=== PATIENT | male | born 1965 | race Caucasian/White ===

== ENCOUNTER 2021-05-29 08:43 | Outpatient (CLI) | payer OTHER, BC, SELFPAY ==
--- NOTE | 2021-05-29 08:46 | RAD_ITS ---
STUDY: X-RAY - RIGHT ELBOW REASON FOR EXAM: Male, 55 years old. Elbow pain following a fall TECHNIQUE: 3 view(s) of the elbow. COMPARISON: None. FINDINGS: Normal visualized humerus, radius and ulna. There is degenerative arthrosis of the radiocapitellar and ulnotrochlear articulations. The soft tissue structures are unremarkable. RAD/Elbow min 3 Views IMPRESSION: Arthrosis of the elbow, as described above. No fracture or dislocation is seen. Electronically Signed: Yonas Dorman MD at 9:49 EST ,
--- NOTE | 2021-05-29 09:00 | RAD_ITS ---
STUDY: X-RAY - RIGHT SHOULDER REASON FOR EXAM: Male, 55 years old. Fall TECHNIQUE: 4 view(s) of the shoulder. COMPARISON: None. FINDINGS: Normal glenohumeral articulation. There is hypertrophic osteoarthrosis of the acromioclavicular joint with inferior osseous spur formation. Normal acromion. Normal humeral head and visualized proximal humerus. The soft tissue structures are unremarkable. Normal visualized pulmonary apex. 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 Electronically Signed: Yonas Dorman MD at 9:49 EST ,
== END 2021-05-29 23:59 | disposition home or self-care (01) ==
LOC: MTRAD 08:46
PROVIDERS: Visit Provider Physician Assistant Surgical
DX: S50.01XA Contusion of right elbow, initial encounter (principal)
CPT/HCPCS: 73030; 73080

== ENCOUNTER 2021-06-17 14:44 | Outpatient (CLI) | payer OTHER, BC, SELFPAY ==
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
== END 2021-06-17 23:59 | disposition home or self-care (01) ==
LOC: CT 14:47
PROVIDERS: Referring Provider Physician Assistant Surgical; Visit Provider Physician Assistant Surgical
DX: S46.911A Strain of unspecified muscle, fascia and tendon at shoulder and upper arm level, right arm, initial encounter (principal)
CPT/HCPCS: 73200

== ENCOUNTER → 2021-09-02 | Outpatient (CLI) | payer OTHER, BC, SELFPAY ==
--- NOTE | 2021-09-02 08:39 | MRI_ITS ---
STUDY: MR RIGHT SHOULDER ARTHROGRAPHY REASON FOR EXAM: Right shoulder pain and limited range of motion. TECHNIQUE: Standardized fat and water weighted pulse sequences were obtained in all 3 orthogonal planes after intra-articular instillation of dilute gadolinium. COMPARISON: Radiographs 05/29/2021. FINDINGS: There is a full-thickness tear of the supraspinatus and infraspinatus tendons retracted approximately 4.7 cm (T1 coronal images 5-15). There is an undersurface partial-thickness tear of the distal superior fibers of the subscapularis tendon with medial subluxation of the proximal extracapsular long biceps tendon (T1 axial images 11, 12; T1 sagittal image 11). Normal teres minor tendon. Normal supraspinatus muscle. Normal infraspinatus muscle. Normal subscapularis muscle. Normal teres minor muscle. Normal glenohumeral articulation. There is superior migration of the humeral head secondary to the retracted rotator cuff tear. Normal biceps labral complex. There is a tear of the anterior-inferior labrum (T1 axial images 13, 14) extending into the inferior labrum (T1 axial image 15; T1 coronal images 9-12). Normal capsulo- ligamentous complex. There is acromioclavicular arthrosis with hypertrophic changes (T2 sagittal image 16). There is a Type II morphology (curved), with a neutral orientation. There is dilute gadolinium in the subacromial-subdeltoid bursa. There is thickening of the coracoacromial ligament (T2 sagittal image 11). There is iatrogenic edema in the proximal anterior deltoid muscle. Normal trapezius muscle. MRI/Upper Ext Jt Only W/Contrast IMPRESSION: Full-thickness tear of the supraspinatus and infraspinatus tendons. Undersurface partial-thickness tear of the distal superior fibers of the subscapularis tendon with medial subluxation of the proximal extracapsular long biceps tendon. Tear of the anterior-inferior and inferior labrum. Acromioclavicular arthrosis. Thickening of the coracoacromial ligament. Electronically Signed: Dung Vidal MD at 11:31 EDT ,
--- NOTE | 2021-09-02 09:00 | RAD_ITS ---
CLINICAL HISTORY: Male, 56 years old. Pressure PROCEDURE: ARTHROGRAM - RIGHT SHOULDER CONSENT: The procedure with its potential risks was explained to the patient, all the questions and concerns were answered and written informed consent was obtained. SEDATION: None FLUOROSCOPY TIME (if supplied): (0.23) minutes/seconds. Injection Information: 10 cc MRI contrast mixture prepared by the pharmacy. Number of images obtained: 1 TECHNIQUE: (All elements of maximal sterile barrier technique followed, including US elements as applicable) A timeout was performed to confirm identity, procedure, and site. The patient''s right shoulder was localized under fluoroscopy. The patient''s right shoulder was prepped and draped in the usual sterile fashion. Local anesthesia was achieved with subcutaneous injection of approximately 8 cc of 2% LIDOCAINE. Under fluoroscopic guidance, a 22-gauge spinal needle was advanced into the right joint space and intra-articular location was confirmed with administration of 4 cc of 50-50 mixture of [id number] and normal saline. Approximately 5 cc of the MRI mixture was then injected into the joint. It was felt that there was some extra-articular contrast. The needle was then slightly repositioned. 10 cc of the MRI mixture was then injected into the joint with intra-articular location confirmed by fluoroscopy. The needle was then withdrawn. The patient tolerated the procedure well, with no intermediate complications. The patient was escorted to the MR suite for further imaging. RAD/Arthrogram Shoulder w/ MRI IMPRESSION: Successful right shoulder arthrogram. Electronically Signed: Chris Whitlock, at 11:21 EDT ,
[2021-09-02] MEDS: Lidocaine 2% (5ml sdv) 5 ML VIAL.MPF INFILT (09:05)
[2021-09-02] MEDS: Iopamidol 10 ML in Syringe 1 EACH 600 ML INTRAARTIC (09:05)
== END | disposition home or self-care (01) ==
LOC: RAD 08:30
PROVIDERS: Referring Provider Orthopaedic Surgery; Visit Provider Orthopaedic Surgery
DX: S46.911A Strain of unspecified muscle, fascia and tendon at shoulder and upper arm level, right arm, initial encounter (principal)
CPT/HCPCS: 23350; 73222; 77002; A9575; Q9967

== ENCOUNTER 2021-09-03 09:30 | Outpatient (RCR) | payer OTHER, BC, SELFPAY ==
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
--- NOTE | 2021-07-27 09:41 | HP.PTDCSUM ---
It has been my pleasure to treat TING POTTS referred by SHARRON Bass, with the diagnosis of Right Shoulder Strain for a total of 11 visit(s). Discharge Date: Please see the following information for a summary of their discharge status. Subjective: Patient reports that some days are better than others. He is doing his morning stretches and has more clicking overhead and behind his back. Carey he had more ROM in IR but has decreased recently. He avoids heavy lifting with his right. He is able to fold clothes and do dishes. ER without weight is better but if you add weight its pretty sore and hard. Anything overhead is more locking. Does have a little bit of tingling and numbness in the left neck/upper trap area. He feels the shoulder wears out during the day. Hard to lift anything with his arm extended (bigger parviz). Worst in the last 24 hours: 6/10 Best: 0/10. He is not back to work at this point. Went to see ortho- denied the injection- and is trying to get a release to get information on his metal plates for an MRI. Does not have an apt to go back to see the MD but plans to get one. Right Shoulder Pain Intensity (Out of 10): Unrated % Improvement: 70 Objective/Function: Posture: good sitting in a supported chair- does move around when he gets uncomfortable. Gait: no LE deviation noted- good arm swing and trunk rotation. Palpation: tender along bicipital groove. ROM: AROM: Cervical: WNL Finger dexterity/Air Traffic Control Specialist Center: WFL, Elbow: WFL Shoulder: Flexion: 180 degrees with pain with end range, Abd: 180 degrees with pain end range and cracks when he comes back down, IR: L2 with thumb ER: 50 degrees. Sensation: WNL. Strength: Shoulder: Tested with dynamometer: Flexion: 7/6 with pain and clicking, Extn: 25/33 Abd: 33/34 with pain, Add: / with pain ER: 12/ with pain, IR: / with pain, Elbow Extn: 15/17, Flexion: 34/33 Air Traffic Control Specialist Center: 80/80. - Special Tests. R Shoulder Lift Off Test - Subscapular Tear: Positive. R Shoulder Empty Can - SS: Positive. R Shoulder Belly Press - SupScap: Positive. R Shoulder Neer - Impingement: Positive. R Shoulder Durbin Eduin - Impingement: Positive Goal 1:: Patient will be I with HEP and progression Goal 2:: Patient will maintain proper posture t/o tx session to demo increased scap s/s. Goal 3:: Patient will demo full AROM without pain Goal 4:: Patient will report 80% better Plan: 07/27/21: Discharge to I HEP- return to MD for further evaluation. Focus on ROM and scapular s/s- functional mobility If there are questions or concerns regarding this patient's physical therapy, please feel free to call me at [phone]. Thank you for the referral of this patient. Sincerely, TYLER CordovaT Balance/Gait/Functional tests - Balance/Special Test Scores Quick DASH Score: 36.3626
--- NOTE | 2021-09-03 09:51 | HP.PTREVAL_ITS ---
SHARRON Bass, It has been my pleasure to treat TING POTTS over the last 22 visits for Right Shoulder Strain. Please see the progress note below for an update on the physical therapy plan of care! Subjective: Patient reports that he has less pain but we have been doing everything below 90 degrees. Had an MRI yesterday- which was very painful. Goes back to the MD probably after the first of September. Objective/Function: Posture: good sitting in a supported chair- does move around when he gets uncomfortable. Gait: no LE deviation noted- good arm swing and trunk rotation. Palpation: tender along bicipital groove. ROM: AROM: Cervical: WNL Finger dexterity/Supply Chain Consultant: WFL, Elbow: WFL Shoulder: Flexion: 180 degrees with pain with end range, Abd: 180 degrees with pain end range, IR: L2 with thumb ER: 50 degrees. Sensation: WNL. Strength: Shoulder: Tested with dynamometer: Flexion: 18/22 with pain and clicking, Extn: 25/30 Abd: 20, 19 with pain, Add: 20/20 with pain ER: 5/5 with pain, IR: 11/13 with pain, Elbow Extn: 15/17, Flexion: 34/33 Supply Chain Consultant: 80/80. - Special Tests. R Shoulder Lift Off Test - Subscapular Tear: Positive. R Shoulder Empty Can - SS: Positive. R Shoulder Belly Press - SupScap: Positive. R Shoulder Neer - Impingement: Positive. R Shoulder Durbin Eduin - Impingement: Positive Plan Plan: Return to MD for further evaluation. Focus on ROM and scapular s/s- functional mobility Balance/Gait/Functional tests - Balance/Special Test Scores Quick DASH Score: 27.2725 Goals Goal 1:: Patient will be I with HEP and progression Goal Time Frame: 4-6 Weeks Goal 2:: Patient will maintain proper posture t/o tx session to demo increased scap s/s. Goal Time Frame: 4-6 Weeks Goal 3:: Patient will demo full AROM without pain Goal Time Frame: 4-6 Weeks Goal 4:: Patient will report 80% better Goal Time Frame: 4-6 Weeks Anticipated Interventions Patient/Client Instruction: Educate patient on: Benefits of Fitness Program Therapeutic Exercise to Include: Strength training, Endurance training, Balance training, Coordination, Agility training, Body mechanics, Postural training, Flexibilty training, Gait and locomotor training, Neuromotor development, Dynamic Lumbar Stabilization, Scapular Strength/Stabilization For the Purpose of:: To improve muscle performance and motor function TENS: Yes Cryotherapy (ice pack, ice massage): Yes Thermo therapy (hot pack): Yes Ultrasound (thermal/non thermal): Yes Please do not hesitate to contact me at [phone] by phone or if you have questions or concerns regarding this new plan of care! Sincerely, TYLER CordovaT
--- NOTE | 2021-12-16 11:20 | HP.PT.NRP ---
TING POTTS was seen in my office for initial evaluation on 07/02/21. The following Plan of Care was established for this patient: Initial Frequency: 2x /Week Initial Duration: 4 Weeks Patient/Client Instruction: Educate patient on: Benefits of Fitness Program Therapeutic Exercise to Include: Strength training, Endurance training, Balance training, Coordination, Agility training, Body mechanics, Postural training, Flexibilty training, Gait and locomotor training, Neuromotor development, Dynamic Lumbar Stabilization, Scapular Strength/Stabilization For the Purpose of:: To improve muscle performance and motor function TENS: Yes Cryotherapy (ice pack, ice massage): Yes Thermo therapy (hot pack): Yes Ultrasound (thermal/non thermal): Yes This patient was last seen in our office . Pertinent comments regarding their Physical therapy will appear below: Patient to be d/c due to referral for surgery. At this point I will be discontinuing this patient from physical therapy. I would be happy to see this patient again in the future if found appropriate by the physician. Thank you! Swapna Cates, TIFFANY Balance/Gait/Functional tests - Balance/Special Test Scores Quick DASH Score: 27.5501
== END 2021-09-03 19:00 | disposition home or self-care (01) ==
LOC: PT 09:30
PROVIDERS: Referring Provider Physician Assistant Surgical; Visit Provider Physician Assistant Surgical
DX: S46.911D Strain of unspecified muscle, fascia and tendon at shoulder and upper arm level, right arm, subsequent encounter (principal)
CPT/HCPCS: 97014; 97110; 97162; 97164; G0283

== ENCOUNTER 2022-05-10 10:30 | Outpatient (RCR) | payer OTHER, SELFPAY ==
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
--- NOTE | 2022-05-07 14:55 | HP.PTREVAL_ITS ---
Dr. Jess Moser MD, It has been my pleasure to treat TING POTTS over the last 40 visits for ROTATOR CUFF TEAR MASSIVE. Please see the progress note below for an update on the physical therapy plan of care! Subjective: Patient reports more pain /soreness up most of the night. States 40 -50% improvement . Most lifting OH and lifting patient Objective/Function: POSTURE: rounded shoulders forward. PALAPTION: unremarkable. NEURO: denies paresthesia/tingling. AROM: flexion 160 degrees ,abduction 155 ,ER 90 degrees, IR L4. MMT: (peak force) IR 19.5 ,ER 9.1 ,Supraspinatus 9.0 soreness , deltoid 22.0 anterior with more soreness. Patient able to lift 35# crate to table ,push sled 90 degrees ,carry farmers 30#. Pract iced chest compression no problems. Overall today more sore affecting numbers with RTC strength Plan Plan: RTD. S/P MASSIVE RTC WITH REPAIR RTC (MASSIVE DOUBLE ROW ) ARHTRSOCOPIC WITH DEBRIDEMENT SUBACROMIAL DECOMPRESSION ACRMIOCLAVICULAR DECMPRESSION AND AC DECOMPRESSION BICEP TENODESIS S/P 12/15. PT INERVEVTIONS WORK CONDTIIONING RTC/SCAPULAR STRENGTHENING ,POSTURAL EX'S ,JOB SIMULATION ACTIVITIES , FUNCTIONAL STRENGTHNEING AND ENDURANCE Balance/Gait/Functional tests - Balance/Special Test Scores Quick DASH Score: 40.9075 Goals Goal 1:: Patient to be I with HEP for RTC Goal Time Frame: 8-12 Weeks Goal Progress: Goal Met Goal 2:: Patient to demonstrate 70% improvement with of improved function and decrease pain Goal Time Frame: 8-12 Weeks Goal Progress: Progressing Goal 3:: Patient to improve AROM shoulder flexion/abduction 150 degrees ,ER 80 degrees and IR to put on coat and ADLS above 90 degrees to reach in cupboard. Goal Time Frame: 8-12 Weeks Goal Progress: Goal Met Goal 4:: Patient improve quick Dash by 10 points to improve QOL and function Goal Time Frame: 8-12 Weeks Goal Progress: Goal Met Goal 5:: Patient improve strength of RTC 4-/5 and deltoid 3+/5 to improve activities above 90 degrees for job demands Goal Time Frame: 8-12 Weeks Goal Progress: Goal Met Goal 6:: Patient be able o use shoulder for ADLS' and RTW with min limiations Goal Time Frame: 8-12 Weeks Goal Progress: Progressing Anticipated Interventions Patient/Client Instruction: Educate patient on: Condition, Plan of Care For the Purpose of:: To decrease pain, To increase ROM, To improve muscle performance and motor function, To improve ability to perform ADL's, To increase tolerance to activity/condition/position, To improve performance and independence with ADL's, To improve ability of physical actions for home/community/work/leisure, To improve health of tissue, To decrease soft tissue restriction, To increase flexibility/ROM, To assume or resume ADL's, To prevent re-injury, To improve tolerance to ADL's Therapeutic Exercise to Include: Strength training, Body mechanics, Postural training, Flexibilty training, Passive ROM, Active ROM Comment: RTC For the Purpose of:: To decrease pain, To increase ROM, To improve muscle performance and motor function, To improve ability to perform ADL's, To increase tolerance to activity/condition/position, To improve ability of physical actions for home/community/work/leisure, To improve health of tissue, To decrease soft tissue restriction, To reduce risk of recurrence, To prevent re-injury, To improve tolerance to ADL's Manual Therapy Techniques to Include: Passive ROM Comment: SHOULDER For the Purpose of:: To decrease pain, To increase ROM, To improve health of tissue, To decrease soft tissue restriction TENS: Yes IF ES: Yes Cryotherapy (ice pack, ice massage): Yes Thermo therapy (hot pack): Yes For the Purpose of:: To decrease pain, To improve nutrient delivery to tissue, To increase oxygenation perfusion, To improve health of tissue, To decrease soft tissue restriction Please do not hesitate to contact me at [phone] by phone or if you have questions or concerns regarding this new plan of care! Sincerely, Jareth Hionjosa, PT, Cert MDT, OCS
--- NOTE | 2022-05-11 12:57 | HP.OTFCE_ITS ---
Floor (Occasional 1-33% of Day): 75# Floor (Frequent 34-66% of Day): 38# Floor (Constant 67-100% of Day): NA Floor PDL: Medium-Heavy Knee (Occasional 1-33% of Day): 75# Knee (Frequent 34-66% of Day): 38# Knee (Constant 67-100% of Day): NA Knee PDL: Medium-Heavy Waist (Occasional 1-33% of Day): 65# Waist (Frequent 34-66% of Day): 32# Waist (Constant 67-100% of Day): NA Waist PDL: Medium Shoulder (Occasional 1-33% of Day): 50# Shoulder (Frequent 34-66% of Day): 25# Shoulder (Constant 67-100% of Day): NA Shoulder PDL: Medium Overhead (Occasional 1-33% of Day): 25# Overhead (Frequent 34-66% of Day): NA Overhead (Constant 67-100% of Day): NA Overhead PDL: Light Comments: Physical Demand level for lifting at floor, knee levels is Medium- Heavy. Physical Demand level for lifting at waist levels Medium. Physical Demand level for lifting at shoulder levels Medium. Physical Demand level for lifting overhead Light. pt demo good lifting mechanics throughout assessment Bending: Frequent Ability (34-66% of day) Squatting: Frequent Ability (34-66% of day) Kneeling: Frequent Ability (34-66% of day) Comments: with use of external support Reaching out: Frequent Ability (34-66% of day) Reaching up: Frequent Ability (34-66% of day) Sitting: Frequent Ability (34-66% of day) Walking: Frequent Ability (34-66% of day) Standing: Frequent Ability (34-66% of day) Duration Sedentary Sedentary Light Light Light Medium Medium Medium Heavy Very Heavy Heavy Occasional (0-33% of day) Frequent (34-66% of day) Constant (67-100% of day) 10 # Negligible Negligible 15 # 8 # Negligible 20 # 10# Negli. 35 # 18 # 7 # 50 # 25 # 10 # 75 # 100 # >100 # 38 # 50 # >50 # 15 # 20 # >20 # Weight:: 113.398 kg Hand Dominance: right Medical History Including Restrictions: Pt states he was in good health until he suffered a work injury on 2021. Pt states he went outside at work to open a car door for a patient and slipped on the ice. Pt states [facility]- and underwent therapy. once MRI pt went for sx. for right rotator cuff repair on 12/15/21. pt has been through physical therapy for work conditioning. Mr. solares was working on simulated work tasks as 90# sled push, box lifts and simulated chest compressions in hopes to return to work without restrictions. 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 pt has concerns of returning and safely performing his job duties. pt denies lifting restrictions that he knows of from his surgeon. Diagnoses: Right rotator cuff tear dx 2021. Asthma. GRD. Sleep apnea Symptoms: Right shoulder sharp shooting pain. resistive extension pain. Sleep interruption (wakes up when he is sleeping on right side). muscle tightness Pain: pt reports current right shoulder pain 0/10. pt reports typically no pain with dressing and bathing 0/10. pt states with some ROM of right shoulder he will try to avoid because it does cause pain. Work History: Pt works for [employer]- pt states he has worked there for 12/21/07. pt is employed respiratory therapist. Pt states some of his job duties include transferring pts from bed to chair- and tsf back to bed. pt is required to perform CPR, pt respiratory care. mostly standing, walking and moving supply cart. pt has concerns with pt mobility and transfers pts for respiratory treatments. pt can not recall his lifting requirement for his job description. Behavioral: pt cooperative throughout assessment. ADLS: Pt lives with dtr. in two story home- pt is ind. with self care and performing all cooking, cleaning, and laundry-. pt is driving IND and grocery shopping. ROM: left shoulder flexion 160 abduction 170 pt demo IR/ER WFL. right shoulder flexion 155 abduction 160 pt demo IR/ER WFL. pt demo with bilateral OA deformi ties of thumbs and DIP of IF and MF- pt demo full functional ROM of grasp. pt limited with bilateral ankle ROM from remote hx of injury (wears ankle braces). all other ROM is WFL. Strength: use of [employer]2 peak force testing. right shoulder flexion 13# left 26.6# shoulder extension 27# left 34.5#. right shoulder horizonal adduction 15# left 23# abduction right 19# left 23#. right hip flexion 31# left 44#. right quad 56# left 53#. right hamstring 43# left 43#. pt demo good strength grossly throughout. Right Band Lining Bander Strength Average: 76.66 Right Band Lining Bander Strength Percentile: 18% Left Band Lining Bander Strength Average: 68.33 Left Band Lining Bander Strength Percentile: 17% Right Lateral Pinch Average: 20.00 Right Lateral Pinch Percentile: 50% Left Lateral Pinch Average: 20.00 Left Lateral Pinch Percentile: 75% Right Tripod Pinch Average: 13.33 Right Tripod Pinch Percentile: 10% Left Tripod Pinch Average: 13.33 Left Tripod Pinch Percentile: 10% Comments: resting heart rate 70 Sensation: right thumb 3.22 diminished light touch left 2.83 Normal. right IF 2.83 left 2.83 Normal sensation. right MF 2.83 left 2.83 Normal sensation. right RF 2.83 left 2.83 Normal sensation. right LF 2.83 left 2.83 Normal sensation Fine Motor: 9 hole peg test for fine motor skills. right 18.81 =75% for age. left 22.88 =75% for age. pt demo good fine motor luna at 75% of others his age Balance: functional reach 10. Interpretation: A score of 6 or less indicates a significant. increased risk for falls. A score between 6-10 inches indicates a. moderate risk for falls. pt demo good balance throughout assessment. no noted LOB. Bending: pt demo the ability to bend forward 3/3x, 10/10x and 10/10 rapidly. pt can bend forward on a frequent ability. heart rate 82 following Squatting: pt demo the ability to squat 3/3x, 10/10x and 10/10x rapidly. pt can squat on frequent ability Kneeling: pt demo the ability to kneel 3/3x, 10/10x with external support and 10/10x rapidly. pt can knee on a frequent ability. with use of external support when needed Reaching out/up: pt demo the ability to reach out/up 3/3x, 10/10x and 10/10x rapidly. pt did feel more right shoulder cracking. heart rate 80. pt can reach out/up on frequent ability. Walking: pt demo the ability to ambulate 15 min with a antalgic reciprocal gait pattern. pt can ambulate on frequent ability Standing: pt demo the ability to stand 10 min while shifting body weight. pt can stand on frequent ability with wt. shifts Sitting: pt demo the ability to sit for 30 min with no apparent or expressed discomfort. pt can sit on frequent ability Climbing Stairs: pt demo the ability to ascend 10 steps with reciprocal step pattern and use of left arm on handrail- pt descended with reciprocal step pattern and use of right handrail. pt demo with good safety Floor Lift: pt demo the ability to lift 75# maximally from floor level with good lifting mechanics. pt denied right shoulder discomfort or pain. Knee Lift: pt demo the ability to lift 75# maximally from knee level with good lifting mechanics. pt denied right shoulder discomfort or pain Waist Lift: pt demo the ability to lift 65# maximally from waist level with good lifting mechanics. pt denied right shoulder discomfort or pain Shoulder Lift: pt demo the ability to lift 50# maximally from shoulder level with good lifting mechanics. pt denied right shoulder discomfort or pain Overhead Lift: pt demo the ability to lift 25# maximally from overhead level with good lifting mechanics. pt denied right shoulder discomfort or pain Carrying: pt demo the ability to carry 30# for 30 feet with good lifting mechanics. Comments: with simulated job requirements therapist had Mr. Solares work with therapist on hoisting pt (230# male) up in bed (mat table) pt did well with no increase in right shoulder discomfort. ( left shoulder positioned closest to pts head). therapist than had simulated transfer of pt rolling from supine to sideling. Mr. Solares attempted to pull sheet to roll pt. to the left he was on right side of pt. pt (biceps and shoulder flexion with triceps ) this increased right shoulder discomfort ( advised NOT to be on that side of a pt due to increase in pain) transfer with pt rolling from supine to right Mr. Solares pulling pt toward him he felt comfortable. Mr. Solares tolerated and could perform pulling Vs pushing pt away. Mr. Solares did well with the assessment and had reports of discomfort at times ( 3/10) but most pain with simulated rolling of a patient from supine to left with Mr. Solares on left side. Mr. Solares did not have pain with pts rolling towards him vs assisting a pt rolling away from him.
--- NOTE | 2022-05-11 12:57 | HP.OTFCE.D ---
FCE D/C Summary - Discharge TING POTTS was seen for a one time visit for an FCE on 05/10/22 and is discharged.
--- NOTE | 2022-07-06 11:03 | HP.PTDCSUM ---
It has been my pleasure to treat TING POTTS referred by Dr. Jess Moser MD, with the diagnosis of ROTATOR CUFF TEAR MASSIVE for a total of 40 visit(s). Discharge Date: Please see the following information for a summary of their discharge status. Subjective: Patient reports more pain /soreness up most of the night. States 40 -50% improvement . Most lifting OH and lifting patient Right Pain Intensity (Out of 10): 5 % Improvement: 40 Objective/Function: POSTURE: rounded shoulders forward. PALAPTION: unremarkable. NEURO: denies paresthesia/tingling. AROM: flexion 160 degrees ,abduction 155 ,ER 90 degrees, IR L4. MMT: (peak force) IR 19.5 ,ER 9.1 ,Supraspinatus 9.0 soreness , deltoid 22.0 anterior with more soreness. Patient able to lift 35# crate to table ,push sled 90 degrees ,carry farmers 30#. Practiced chest compression no problems. Overall today more sore affecting numbers with RTC strength Goal 1:: Patient to be I with HEP for RTC Goal Progress: Goal Met Goal 2:: Patient to demonstrate 70% improvement with of improved function and decrease pain Goal Progress: Progressing Goal 3:: Patient to improve AROM shoulder flexion/abduction 150 degrees ,ER 80 degrees and IR to put on coat and ADLS above 90 degrees to reach in cupboard. Goal Progress: Goal Met Goal 4:: Patient improve quick Dash by 10 points to improve QOL and function Goal Progress: Goal Met Goal 5:: Patient improve strength of RTC 4-/5 and deltoid 3+/5 to improve activities above 90 degrees for job demands Goal Progress: Goal Met Goal 6:: Patient be able o use shoulder for ADLS' and RTW with min limiations Goal Progress: Progressing Plan: RTD. D/C RTW AND PLAN TO HAVE FCE If there are questions or concerns regarding this patient's physical therapy, please feel free to call me at [phone]. Thank you for the referral of this patient. Sincerely, Jareth Hinojosa, PT, Cert MDT, OCS Balance/Gait/Functional tests - Balance/Special Test Scores Quick DASH Score: 40.9075
== END 2022-05-10 19:00 | disposition home or self-care (01) ==
LOC: OT 10:30
PROVIDERS: Referring Provider Orthopaedic Surgery Hand Surgery; Visit Provider Orthopaedic Surgery Hand Surgery
DX: M75.101 Unspecified rotator cuff tear or rupture of right shoulder, not specified as traumatic (principal); Z47.89 Encounter for other orthopedic aftercare
CPT/HCPCS: 97110; 97140; 97161; 97750